=== PATIENT | male | born 1965 | race Caucasian/White ===

== ENCOUNTER 2023-07-08 06:30 | Day surgery (SDC) | payer OTHER, SELFPAY ==
[2023-07-04 14:04] VITALS: BMI 28.3
[2023-07-08 07:02] VITALS: BP 156/94; PULSE 67; RESP 16; TEMP 36.1; O2SAT 97; BMI 28.3
[2023-07-08] MEDS: LACTATED RINGERS 1,000 ML 42 ML IV (07:07)
--- NOTE | 2023-07-08 07:36 | P.HP_ITS ---
History of Present Illness History of Present Illness Date Patient Seen: 07/08/23 Time Patient Seen: 07:36 Chief complaint: Open Epigastric Hernia Repair w/mesh Narrative: Brenden is a 58-year-old man who presents with an epigastric hernia. See office note from May for details. [facility] Medical History HLD (hyperlipidemia) Skin cancer Obstructive sleep apnea syndrome Condylomata acuminata Diastasis recti Mixed hyperlipidemia BPH (benign prostatic hyperplasia) Hypertension Surgical History Hx of colonoscopy (2014) Family History Mother Hypertension Diabetes mellitus Father Diabetes mellitus Social History household members: spouse Smoking Status: Never smoker alcohol intake: current Meds Home Medications and Allergies Home Medications Medication Instructions Recorded Confirmed Type finasteride 5 mg tablet 5 mg PO DAILY 05/28/23 07/08/23 History lisinopril 10 mg tablet 10 mg PO DAILY 05/28/23 07/08/23 History rosuvastatin 20 mg tablet 20 mg PO DAILY 05/28/23 07/08/23 History Allergies Allergy/AdvReac Type Severity Reaction Status Date / Time No Known Drug Allergies Allergy Verified 07/08/23 06:46 Exam Vital Signs (past 8 hours): - 07/08/23 07:02 Temperature 97 F L Pulse Rate 67 Respiratory Rate 16 Blood Pressure 156/94 H Pulse Oximetry 97 Oxygen Delivery Method Room Air Oxygen Delivery Method Room Air Const General: healthy appearing Assessment & Plan Assessment and plan (1) Epigastric hernia: Status: Acute Plan We reviewed the risks and benefits of open epigastric hernia repair with mesh and he would like to proceed.
[2023-07-08] MEDS: CEFAZOLIN 2 GM/100 ML PREMIX 100 ML IV (08:05)
--- NOTE | 2023-07-08 08:06 | SUR.OPER ---
Supine on padded OR bed, head on pillow, arms secured on padded arm boards at <90 degrees abduction, legs uncrossed, safety belt at thigh, tape over blanket over lower legs.
[2023-07-08] MEDS: BUPIVACAINE 0.5% (PF) 30 ML, EPINEPHrine 0.15 MG INJ (08:14)
--- NOTE | 2023-07-08 08:46 | P.OP_ITS ---
Operative Date/Time/Diagnoses Pre-op diagnosis: Epigastric hernia Post-op diagnosis: same Procedure & Clinicians Procedure: Open epigastric hernia repair with mesh Same procedure as scheduled: Yes Surgeon: Aniceto Short Anesthesia Type: General Operative Notes Procedure in detail: Ancef was administered. The patient was brought to the operating room, placed on the table in the supine position and general anesthesia was induced. The abdomen was prepped and draped in the usual fashion. A time-out was performed. A 5 cm midline incision was made 2 cm umbilicus. Dissection was carried down to the anterior sheath. Dissection revealed that there were actually 2 small fat containing hernias in the midline, each about 1 cm. There was no clear sac. The fatty hernia contents were amputated with cautery. Each fascial defect was separately closed with an 0 Vicryl mattress stitch. The subcutaneous adipose ti ssue was cleared off of the anterior sheath circumferentially about 2 cm in each direction. A piece of polypropylene mesh was trimmed to fit over the fascial closure and secured with Tisseel. Once the Tisseel was dried the skin was closed with multiple interrupted 3-0 Vicryl dermal sutures followed by a running 4 Monocryl subcuticular closure. Steri-Strips and fluffs were applied and an abdominal binder was applied. EBL: 5 mL Post-operative Condition: stable Disposition: PACU
[2023-07-08 08:49] VITALS: BP 102/79; PULSE 86; RESP 17; TEMP 36.6; O2SAT 98
[2023-07-08 08:54] VITALS: BP 125/80; PULSE 86; RESP 14; TEMP 36.6; O2SAT 97
[2023-07-08 09:00] VITALS: BP 127/67; PULSE 85; RESP 14; TEMP 36.6; O2SAT 96
[2023-07-08 09:08] VITALS: BP 128/69; PULSE 81; RESP 16; TEMP 36.4; O2SAT 98
== END 2023-07-08 09:14 | disposition home or self-care (01) ==
PROVIDERS: PCP Family Medicine; Referring Provider Surgery; Visit Provider Surgery
PROC: (CPT 49591; principal; 2023-07-08 07:45)
DX: K43.9 Ventral hernia without obstruction or gangrene (principal)
CPT/HCPCS: 49591; J0171; J0690; J1100; J2405; J2704; J3010; J3490

== ENCOUNTER → 2024-10-01 08:10 | Outpatient (CLI) | payer OTHER, SELFPAY ==
--- NOTE | 2024-10-01 08:11 | DI.MRI.S_ITS ---
PROCEDURE: MR LUMBAR SPINE WO CON INDICATIONS: radiculopathy, weakness of left leg TECHNIQUE: Noncontrast sagittal T1 spin echo and T2 fast echo, sagittal STIR, and T2 fast spin echo through the lumbar spine. In cases with scoliosis, additional coronal T2 fast spin echo may be performed. COMPARISON: None. FINDINGS: Image quality: Diagnostic, with note made of motion artifact. Alignment and Curvature: There is minimal anterolisthesis at L4-L5. Bone Marrow: Marrow is of normal overall signal. No acute vertebral body compression fractures. Spinal Cord: Conus medullaris terminates at the L1 level. Visualized cord demonstrates normal signal and size. Paraspinous Soft Tissues: No paravertebral masses. T12-L1: Normal appearance. L1-L2: Normal appearance. L2-L3: Normal appearance. L3-L4: The disc height and disk signal are relatively well-preserved. Mild generalized disc bulge is seen. There is a superimposed central disc protrusion. Mild bilateral neural foraminal narrowing is seen. Minimal central canal narrowing is seen. L4-L5: The disc height is well-preserved. Loss of disc signal is seen at this level. Mild generalized disc bulge is seen. There is a left foraminal disc protrusion, with an associated annular fissure, as on series 6, image 14. Moderate facet joint hypertrophy is seen. There is moderate right-sided and mild left-sided neural foraminal narrowing. No significant central canal narrowing is seen. L5-S1: No significant abnormality is seen. IMPRESSION: Focal L4-L5 degenerative change. Dictated by: Nima Hernández M.D. on 10/01/2024 at 8:28 Approved by: Nima Hernández M.D. on 10/01/2024 at 8:30
== END ==
PROVIDERS: PCP Family Medicine; Referring Provider Family Medicine; Visit Provider Family Medicine
DX: M54.16 Radiculopathy, lumbar region (principal); R53.1 Weakness; M51.369 Other intervertebral disc degeneration, lumbar region without mention of lumbar back pain or lower extremity pain; M48.061 Spinal stenosis, lumbar region without neurogenic claudication; M47.816 Spondylosis without myelopathy or radiculopathy, lumbar region
CPT/HCPCS: 72148

== ENCOUNTER → 2025-02-25 08:53 | Outpatient (CLI) | payer OTHER, SELFPAY ==
--- NOTE | 2025-02-25 08:55 | DI.RAD.S_ITS ---
PROCEDURE: XR LUMBAR SPINE MIN 4V INDICATIONS: lumbar facet arthropathy, left hip DJD TECHNIQUE: 5 views of the lumbar spine acquired, including flexion and extension views. COMPARISON: None. FINDINGS: Lumbar spine curvature and alignment: Normal Bones: Laminectomy change at L5-S1 Disc spaces: Mild degenerative disc disease T10-11 T11-T12 T12-L1. Mild L4-5 L5-S1 degenerative facet disease Soft tissues: No soft tissue swelling, calcification or mass. IMPRESSION: Degeneration Dictated by: Brenton Varma M.D. on 02/28/2025 at 12:12 Approved by: Brenton Varma M.D. on 02/28/2025 at 12:14
== END ==
PROVIDERS: PCP Family Medicine; Referring Provider Physical Medicine & Rehabilitation; Visit Provider Physical Medicine & Rehabilitation
DX: M47.816 Spondylosis without myelopathy or radiculopathy, lumbar region (principal); M47.817 Spondylosis without myelopathy or radiculopathy, lumbosacral region; M16.9 Osteoarthritis of hip, unspecified; M51.34 Other intervertebral disc degeneration, thoracic region; M51.35 Other intervertebral disc degeneration, thoracolumbar region
CPT/HCPCS: 72110